=== PATIENT | female | born 1990 | race Hispanic/Latino ===

== ENCOUNTER → 2023-03-15 07:47 | Outpatient (CLI) | payer OTHER, SELFPAY ==
--- NOTE | 2023-03-15 | DI.US.S_ITS ---
PROCEDURE: US OB >= 14 WEEKS FETUS INDICATIONS: GROWTH DATES OUTSIDE/PRIOR DATING DATA: Last menstrual period (LMP): 07/14/2022. LMP-based estimated date of delivery (RINA): 04/20/2023. The calculations are made using the clinical RINA of 04/20/2023. TECHNIQUE: Real-time scanning was performed of the fetus, with image documentation and biometric measurements. Endovaginal scanning: Not performed COMPARISON: None. FINDINGS: General: A single living intrauterine gestation is present. Presentation: Vertex. Placenta: Placental position is anterior , without previa. Amniotic fluid index: 12.6 cm, normal range is 5-24 cm. Single deepest vertical pocket is 5.5 cm. heart rate: 157 beats per minute. Maternal cervical canal: 4.8 cm long. Normal lower limit is 2.5 cm. biometrics: Biparietal diameter: 8.7 cm, 34 weeks 6 days Head circumference: 32.5 cm, 36 weeks 6 days Abdominal circumference: 31.5 cm, 35 weeks 3 days Femur length: 6.1 cm, 31 weeks 5 days Clinically estimated gestational age: 34 weeks 6 days Composite gestational age from present scan: 34 weeks 5 days Estimated weight and percentile: 2458 g, 37th percentile IMPRESSION: Single living intrauterine at 34 weeks 6 days, RINA of 04/20/2023. Estimated weight 2458 g, 37th percentile. We strive to produce accurate, complete, and clear reports of imaging services. To assist us in improving patient care, this report was composed using standard report templates and voice recognition software. Therefore, it may contain abnormal punctuation, insertions and/or omissions. Occasional wrong-word or sound-alike substitutions may occur. Though we review the report and make efforts to correct it, we do recommend that the report be read carefully in proper context to recognize any text inaccuracies. Dictated by: Akbar Snyder M.D. on 03/15/2023 at 11:29 Approved by: Akbar Snyder M.D. on 03/15/2023 at 11:32
== END ==
PROVIDERS: Referring Provider Advanced Practice Midwife; Visit Provider Advanced Practice Midwife
DX: O09.813 Supervision of pregnancy resulting from assisted reproductive technology, third trimester (principal); Z3A.34 34 weeks gestation of pregnancy
CPT/HCPCS: 76811

== ENCOUNTER 2023-04-02 15:58 | Outpatient (CLI) | payer OTHER, SELFPAY | END 2023-04-02 17:00 | disposition home or self-care (01) | LOC: OB 04-06 12:08 | PROVIDERS: Referring Provider Nurse Practitioner Obstetrics & Gynecology; Visit Provider Nurse Practitioner Obstetrics & Gynecology | DX: O47.1 False labor at or after 37 completed weeks of gestation (principal); O09.813 Supervision of pregnancy resulting from assisted reproductive technology, third trimester; Z3A.37 37 weeks gestation of pregnancy | CPT/HCPCS: 59025; 76815; G0378; G0379 ==

== ENCOUNTER 2023-04-15 17:09 | Outpatient (CLI) | payer OTHER, SELFPAY ==
--- NOTE | 2023-04-15 19:56 | PM.PROC.1 ---
Procedures Date/Time Date of procedure: 04/15/23 Time of procedure: 18:00 General Procedure description: 32 YO @ 39 wks 2 days by IVF here for martinez balloon placement in anticipation of IOL scheduled tomorrow 04/16/23 for IVF. Baseline FHR: 130 bpm Moderate variability Accels present Decels absent Reactive NST Verified written consent for induction of labor. Procedure explained. Martinez balloon placed with speculum and sterile technique. Cervix cleansed with betadine solution on a scopette x3. Martinez catheter balloon inserted into os and inflated with 60mL normal saline. Tubing clamped. Patient tolerated the procedure well. FHR remained Cat I by continuous EFM. Anticipatory guidance given for cramping, vaginal bleeding and passage of cervical ripening balloon. Return to center at 0730am tomorrow morning for IOL.
== END 2023-04-15 19:01 | disposition home or self-care (01) ==
LOC: OB 04-18 15:05
PROVIDERS: PCP Internal Medicine; Referring Provider Nurse Practitioner Obstetrics & Gynecology; Visit Provider Nurse Practitioner Obstetrics & Gynecology
DX: O09.813 Supervision of pregnancy resulting from assisted reproductive technology, third trimester (principal); Z3A.39 39 weeks gestation of pregnancy
CPT/HCPCS: 59200; 59025; G0378; G0379

== ENCOUNTER 2023-04-16 07:37 | Inpatient (IN) | payer OTHER, SELFPAY ==
--- NOTE | 2023-04-16 08:02 | P.HPOB_ITS ---
OB HPI Date/Time Date of admission: 04/16/23 Date Patient Seen: 04/16/23 Time Patient Seen: 07:45 History of Present Condition Chief complaint: INDUCTION : 1 Para: 0 Estimated Date of Delivery: 04/20/23 Estimated Gestational Age (weeks): 39.3 Narrative: Arin Mcfarland is a 32 year old female at 39 weeks 3 days here for IOL for IVF . She has received regular care with CNMs, complicated by IVF and GBS positive. She is accompanied by her supportive Edwar and is hoping for an unmedicated delivery. Yesterday, 04/15/23, she presented to the hospital for an outpatient appointment, in which informed consent for IOL was obtained and a martinez balloon inserted and inflated to 60mL of normal saline, tolerated well. This morning she presents with the martinez balloon still in place, continuing to cramp since 11pm last night. She reports regular movement, noting a little bit less in the middle of the night when cramps got stronger. She has had bloody show and no leakage of fluid. Indications Indication for induction OB: other (IVF) History of Present care: good care, initiated at week # (12), number of visits (9) and po unds weight gain (36) Dating criteria: other (based on fresh embryo transfer date, confirmed with 5 week US) Ultrasounds: normal 1st trimester US and normal mid trimester US Preadmission Labs Blood type: A (+) positive -: Antibody screen: negative, GBS status: positive, HBsAG: negative, HIV: negative and RPR/VDLR: negative -: Chlamydia screen: not detected and Gonorrhea screen: not detected -: Rubella: immune and Varicella: immune HCT: 33 HCAB: negative PAP: Normal Cell-free DNA: Negative MsAFP: negative 1 hr GTT: 68 Evaluation Evaluation Baseline heart rate: 130 Variability: Moderate (11-25) monitor accelerations: Present Monitor Decelerations: Absent Contraction Frequency (minutes): 4 (2-5) Uterine Contraction Intensity: Moderate Status: Category l Comments: CE: martinez balloon in cervical os but unable to pull through with tension applied [facility] Medical History (Updated 04/16/23 @ 08:44 by Vesta Westfall CNM) 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 Social History marital status: household members: spouse housing: house do you feel safe at home: Yes Smoking Status: Never smoker alcohol intake: former substance use type: does not use Meds Home Medications and Allergies Home Medications Medication Instructions Recorded Confirmed Type No Known Home Medications 04/16/23 04/16/23 History Allergies Allergy/AdvReac Type Severity Reaction Status Date / Time No Known Drug Allergies Allergy Verified 04/16/23 08:22 Review of Systems Review of Systems ROS: Yes All systems reviewed with the patient and are negative except as other lewis documented OB Exam Vital signs Blood Pressure: 124/78 Pulse Rate: 102 Temperature: 98.6 F Resp Effort & Inspection: normal respiratory effort Auscultation: clear to auscultation bilaterally Cardio Rate: regular rate Rhythm: regular rhythm Presentation: vertex Assessment and Plan Assessment and Plan Assessment and Plan narrative: A: Term nullipara IVF IOL, cervical ripening on-going Membranes intact GBS prophylaxis indicated FHR Cat 1 P: Admit to center IA until change in plan of care Plan for CE and pitocin, if indicated, after martinez balloon comes out GBS prophylactic antibiotics with ROM or in active labor Reassess in 4 hours or sooner PRN
[2023-04-16 08:23] VITALS: BP 124/78; PULSE 102; TEMP 37
[2023-04-16 09:45] VITALS: BP 124/78
--- NOTE | 2023-04-16 11:43 | PM.OBPNLAB ---
Date/Time Date Patient Seen: 04/16/23 Time Patient Seen: 11:44 Pain Control Pain control: tolerating well Comments: Continued to contract every 3-5 minute with moderate intensity until recently contractions became shorter and less intense. Lots of FM. Has been seeing bloody show. No leaking of fluid. Supportive partner at bedside. VS: BP 114/77, HR 103bpm, T 36.8C Temporal Pelvic Exam Dilation (cm): 4 Effacement (%): 50 station: -3 Amniotic membrane status: Intact Comments: Zhang-5 Contractions Monitor mode: External Pitocin rate (mU/min): 0 Contraction frequency (min): 4 Contraction duration (min): 40 Contraction intensity: Moderate Status Heart Rate Baseline: 135 Comments: Reassuring by intermittent auscultation Assessment and Plan Assessment: induction ongoing (cervical ripening indicated) Plan: other Comments: GBS prophylaxis once active or SROM cervical ripening with Miso Q4 hours for up to 6 doses Labor support PRN Reassess in 8 hours/after 2 doses, or sooner, PRN
[2023-04-16] MEDS: miSOPROStoL 25 MCG TABLET 50 MCG SL ×2 (12:01→16:19)
[2023-04-16 12:23] LABS: Add Manual Diff / Slide Review NO; Basophils Absolute Auto 100 /uL (0-100); Basophils Percent Auto 0.5 % (0-2); Eosinophils Absolute Auto 0 /uL (0-450); Eosinophils Percent Auto 0.3 % (2-4); Hemoglobin 12.5 g/dL (12.0-16.0); Lymphocytes Absolute Auto 1500 /uL (1100-4500); Lymphocytes Percent Auto 8.5 % (25-40); Mean Corpuscular HGB Conc 33.7 % (30-36); Mean Corpuscular Hemoglobin 29.6 PG (26-34); Mean Corpuscular Volume 87.7 fL (80-100); Monocytes Absolute Auto 1200 /uL (0-900); Neutrophils Absolute Auto 14900 /uL (1500-7000); Neutrophils Percent Auto 83.7 % (50-75); Platelet Count 165 X10^3/uL (150-400); Red Blood Cell Count 4.22 X10^6/uL (4.0-5.2); Red Cell Distribution Width 13.3 % (11.6-14.8); White Blood Cell Count 17.8 X10^3/uL (4.5-11.0)
--- NOTE | 2023-04-16 19:41 | PM.OBPNLAB ---
Date/Time Date Patient Seen: 04/16/23 Time Patient Seen: 19:30 Pain Control Pain control: tolerating well Comments: Arin is sitting up in bed, uncomfortable with contractions for the last 30 minutes. Feels like she is coping well, but needing to breathe through them now, rates them a 4-6 out of 10. VS: BP - 124/74mmHg, HR - 100bpm, T - 36.9C Pelvic Exam Dilation (cm): 4.5 Effacement (%): 50 station: -3 Amniotic membrane status: Intact Comments: anterior, moderate Zhang score: 6 Contractions Monitor mode: External Contraction frequency (min): 2 (1-3) Contraction duration (min): 1 Contraction pattern: Regular Contraction intensity: Moderate Status status: Category l Heart Rate Baseline: 135 Monitor Accelerations: Present Monitor Decelerations: Absent Monitor Variability: Moderate Assessment and Plan Assessment: induction ongoing Plan: continuous present management Comments: A: Term nullipara IVF IOL, continued cervical indicated GBS prophylaxis indicated Membranes intact Coping well FHR Cat 1 P: Re-dose miso 5 hours after last dose if possible, goal of two more miso doses overnight if contraction patterns allow Antibiotics for GBS prophylaxis with ROM or active labor Encourage rest Plan to recheck in the morning, or sooner PRN active labor
[2023-04-16] MEDS: CALCIUM CARBONATE 500 MG TAB 1000 MG PO (23:21)
[2023-04-17] MEDS: AMPICILLIN 2,000 MG in SODIUM CHLORIDE 0.9% 100 ML 200 MG IV (00:05)
--- NOTE | 2023-04-17 00:55 | P.PCN_ITS ---
Regional Block Pre-procedure Procedure: Continuous Lumbar Epidural for L&D Attending OB provider: Vesta Westfall PMH/ROS narrative: term labor, no complications, IVF, no significant PMH. ASA Class: II Labs: Hct 37.0 % (36-46) 04/16/23 12:10 Plt Count 165 X10^3/uL (150-400) 04/16/23 12:10 Medications: Current Medications Generic Name Dose Route Start Last Admin Trade Name Freq PRN Reason Stop Dose Admin Calcium Carbonate 1,000 mg 04/16/23 07:55 04/16/23 23:21 Calcium Carbonate 500 Mg Tab PO 1,000 mg Q4HR PRN Administration Dyspepsia Carboprost Tromethamine 250 mcg 04/16/23 07:55 Carboprost 250 Mcg/Ml Ampul IM Q90M PRN Bleeding Diphenhydramine HCl 25 mg 04/17/23 00:53 Diphenhydramine 50 Mg/Ml Vial IV Q10M PRN Pruritis Fentanyl 100 mcg 04/16/23 07:55 Fentanyl 100 Mcg/2 Ml Inj IV Q1H PRN Pain, Severe (7-10) Oxytocin/Lactated Ringer's 30 unit in 500 mls @ 200 mls/hr 04/16/23 07:55 Oxytocin Premix IV CONT PRN Bleeding Protocol Tranexamic Acid 1,000 mg/ 100 mls @ 200 mls/hr 04/16/23 07:55 Sodium Chloride IV NOW PRN Bleeding Oxytocin/Lactated Ringer's 30 unit in 500 mls @ 2 mls/hr 04/16/23 08:00 Oxytocin Premix IV TITRATE SUN Protocol 2 MILLIUNIT/MIN Ampicillin Sodium 1,000 mg/ 100 mls @ 200 mls/hr 04/16/23 12:00 Sodium Chloride IV Q4H SUN Lactated Ringer's 1,000 mls @ 100 mls/hr 04/16/23 08:00 Lactated Ringers IV CONT SUN FENT 2MCG/ML BUPIV 0.1% EPI 200 mcg in 100 mls @ 6 mls/hr 04/17/23 01:00 Fentanyl/Bupiv/Ns 2mcg/Ml - 0.1% EPIDURAL CONT SUN Lidocaine HCl 20 ml 04/16/23 07:55 Lidocaine 1% 20 Ml INJ INTRA-OP PRN Post Delivery Methylergonovine Maleate 0.2 mg 04/16/23 07:55 Methylergonovine 0.2 Mg Tablet PO Q6HR PRN Heavy Bleeding Methylergonovine Maleate 0.2 mg 04/16/23 07:55 Methylergonovine 0.2 Mg/Ml Vial IM NOW PRN Bleeding Misoprostol 800 mcg 04/16/23 07:55 Misoprostol 200 Mcg Tablet NJ NOW PRN Bleeding Misoprostol 50 mcg 04/16/23 16:00 04/16/23 16:19 Misoprostol 25 Mcg Tablet SL 50 mcg Q4H SUN Administration Nalbuphine HCl 2.5 mg 04/17/23 00:53 Nalbuphine 20 Mg/Ml Ampul IV Q10M PRN Pruritis Naloxone HCl 0.2 mg 04/16/23 07:55 Naloxone 0.4 Mg/Ml Vial IV Q2MIN PRN Opiate Reversal Ondansetron HCl 4 mg 04/16/23 07:55 Ondansetron 4 Mg/2 Ml Inj IV Q4HR PRN Nausea And Vomiting Oxytocin 10 unit 04/16/23 07:55 Oxytocin 10 Unit/Ml Vial IM NOW PRN Bleeding Allergies: Allergies Allergy/AdvReac Type Severity Reaction Status Date / Time No Known Drug Allergies Allergy Verified 04/16/23 08:22 Procedure Insertion date: 04/17/23 Insertion time: : Prep/Local: betadine x3 and 1% lidocaine Interspace: L4-5 Patient position: sitting Needle: 18 gauge [employer] (CSE: 27g Pencan through [place], clear CSF 2.5mg MPF bupiv) Loss of resistance with: saline KENDALL at (cm): 5 Catheter placed at SKIN (cm): 10 Catheter in SPACE (cm): 5 Insertion: No CSF, No Blood, No Paresthesia with insertion, No Paresthesia with injection and No Test dose reaction Initial Medications TEST DOSE time: : TEST DOSE: 1.5% lidocaine with epinephrine 1:200k (mL): 3 BOLUS DOSE time: 01:32 BOLUS DOSE (mL): 5 BOLUS DOSE med: 0.25% bupivacaine Infusion INFUSION: 0.125% bupivacaine and with fentanyl 2 mcg/mL Initial rate (mL/hr): 8 Subsequent interventions: First placement L3-4, +heme with catheter placement. KENDALL 5cm, catheter 11cm to 8cm, still with blood upon aspiration. Pulled and procedure repeated one level below, described above. 0840: 5mL 0.25% bupiv bolus Post-procedure Anesthesia time START: 01:00 Anesthesia time END: 11:06 Post-procedure Anesthesia Assessment: Yes CV function: HR/BP stable, Yes Resp function: RR/sat/airway adequate, Yes Post-op hydration adequate, Yes Pain control adequate, Yes Nausea & vomiting absent, Yes Temperature > 36 C, Yes Mental status appropriate and No Anesthesia complications
[2023-04-17] MEDS: CALCIUM CARBONATE 500 MG TAB 1000 MG PO ×2 (03:59→10:12)
[2023-04-17] MEDS: AMPICILLIN 1,000 MG in SODIUM CHLORIDE 0.9% 100 ML 200 MG IV ×2 (04:00→08:06)
--- NOTE | 2023-04-17 07:43 | PM.OBPNLAB ---
Date/Time Date Patient Seen: 04/17/23 Time Patient Seen: 07:00 Pain Control Pain control: epidural Comments: Arin's contractions became stronger around 10pm after 2 doses of misoprostol (last does at 1615). SROM for moderate meconium, at 2350. Ampicillin for GBS prophylaxis was initiated after SROM. Epidural was requested at 0030, then placed with adequate relief. CE by RN after epidural placement was 6cm/75%/-1, soft, mid position. Arin has been able to get some rest and contractions have continued without augmentation. FHR has been Cat II for occasional late and variable decelerations with moderate variability and accelerations throughout the night. Pelvic Exam Dilation (cm): 9 Effacement (%): 100 station: -1 Amniotic membrane status: Leaking (moderate meconium) Contractions Monitor mode: External Pitocin rate (mU/min): 0 Contraction frequency (min): 2 Contraction duration (min): 1 Contraction pattern: Regular Contraction intensity: Moderate Status status: Category ll Heart Rate Baseline: 140 Monitor Accelerations: Present Monitor Decelerations: Late and Variable Monitor Variability: Moderate Assessment and Plan Assessment: active labor (adequate GBS prophylaxis) and other (meconium stained amniotic fluid) Plan: continuous present management Comments: Anticipate initiation of second stage soon. RT at for MSAF. Reassess in 2 hours or sooner, PRN.
[2023-04-17] MEDS: FENT 2MCG/ML BUPIV 0.1% EPI 200 MCG/100 ML PLAST..BAG 6 MCG EPIDURAL (08:15)
[2023-04-17] MEDS: OXYTOCIN PREMIX 30 UNIT/500 ML PLAST..BAG 200 UNIT IV (11:28)
--- NOTE | 2023-04-17 11:57 | PM.OBPRVD ---
Events: Labor Induction (IVF) and Meconium Stained Fluid Labor & Delivery Delivery date: 04/17/23 Intrapartal Events: None Cervical ripening method: per Gray bulb protocol (then 2 doses of misoprostol) Induction method: none Delivery monitor: external FHT and external uterine Route of delivery: L&D Laceration Description: Perineal - 2nd Degree and Vaginal - 2nd Degree Delivery repair: vicryl Quantitative Blood Loss: 500 Anesthesia Type: Epidural Narrative: Arin was found to be C/C/+1 and pushed with steady progress for an average second stage. FHR was primarily Cat 1. The head crowned over multiple contractions and RT was called to delivery for meconium stained amniotic fluid. With delivery of the head, a compound R hand was noted at posterior introitus and was manually reduced, and with the next push a vigorous girl was delivered in TAMIKA position, with no nuchal cord and easy delivery of the shoulders. Baby irais Flores was placed on Arin's abdomen where she was dried, stimulated and suction with a bulb syringe. Apgars 8/9. 30u Pitocin in 500mL LR was started for AMSTL, bleeding noted from laceration and from placental separation. Pitocin was increased to a bolus at this time. After cessation of pulsation, the cord was double clamped by SNM and cut by LUCIA Vann, cord blood sample collected. With gentle cord traction and single maternal push, an apparently intact placenta delivered spontaneously, along with membranes and a 3 vessel cord. The fundus was immediately firm, midline at U. Bleeding was minimal after delivery of the placenta. A second degree perineal laceration was noted on inspection and repaired with 3-0 vircyl in the usual fashion. A digital rectal exam confirmed no rectal involvement. Dr. Pastor was consulted to evaluate vaginal lacerations due to difficulty visualizing and evaluating marginal of laceration extending deeper into vaginal canal. Arin continued to have adequate anesthesia with epidural running. Dr. Pastor repaired bilateral sulcal tears, rapidly achieving hemostasis. EBL 500. TXA 1g x2 doses ordered. Arin and baby Sandra were stable, skin to skin and when I left the room. [place] Baby 1: Infant gender: Female Presentation: vertex Position: Left Occiput Anterior (compound R hand ) Placenta delivery description: Spontaneous Cord Vessel Description: 3 Vessels score (1 min): 8 score (5 min): 9 weight: 3.293 kg Plan for aftercare: Routine care
[2023-04-17] MEDS: TRANEXAMIC ACID 1,000 MG in SODIUM CHLORIDE 0.9% 100 ML 200 MG IV ×2 (12:44→14:00)
[2023-04-17] MEDS: KETOROLAC 30 MG/ML VIAL IV (12:45)
[2023-04-17] MEDS: LACTATED RINGERS 1,000 ML 100 ML IV (12:54)
[2023-04-17] MEDS: DERMOPLAST SPRAY 20% 60 ML 1 SPRAY TOP (15:37)
[2023-04-17] MEDS: ACETAMINOPHEN 325 MG TABLET 650 MG PO (15:37)
[2023-04-17] MEDS: LANOLIN OINT 7 GM 1 APPLIC TOP (15:37)
[2023-04-17] MEDS: IBUPROFEN 600 MG TABLET PO (18:43)
[2023-04-17] MEDS: OXYCODONE/ACETAMINOPHEN 5/325 TABLET 1 TAB PO (18:43)
[2023-04-17] MEDS: OXYCODONE IR 5 MG TABLET PO (23:26)
[2023-04-18] MEDS: KETOROLAC 30 MG/ML VIAL IV ×2 (00:39→06:12)
[2023-04-18] MEDS: ACETAMINOPHEN 325 MG TABLET 650 MG PO ×3 (03:07→18:22)
[2023-04-18] MEDS: OXYCODONE IR 5 MG TABLET PO ×3 (03:09→14:57)
[2023-04-18 08:44] LABS: Add Manual Diff / Slide Review NO; Basophils Absolute Auto 0 /uL (0-100); Basophils Percent Auto 0.2 % (0-2); Eosinophils Absolute Auto 0 /uL (0-450); Eosinophils Percent Auto 0.2 % (2-4); Hematocrit 27.7 % (36-46); Hemoglobin 9.4 g/dL (12.0-16.0); Lymphocytes Absolute Auto 1600 /uL (1100-4500); Lymphocytes Percent Auto 9.3 % (25-40); Mean Corpuscular HGB Conc 33.8 % (30-36); Mean Corpuscular Hemoglobin 29.5 PG (26-34); Mean Corpuscular Volume 87.3 fL (80-100); Monocytes Absolute Auto 1200 /uL (0-900); Monocytes Percent Auto 7.4 % (3-14); Neutrophils Absolute Auto 14100 /uL (1500-7000); Neutrophils Percent Auto 82.9 % (50-75); Platelet Count 128 X10^3/uL (150-400); Red Blood Cell Count 3.18 X10^6/uL (4.0-5.2); Red Cell Distribution Width 13.1 % (11.6-14.8)
[2023-04-18] MEDS: HYDROMORPHONE 1 MG INJ IV (09:10)
[2023-04-18] MEDS: DOCUSATE 100 MG CAPSULE PO (09:10)
--- NOTE | 2023-04-18 09:30 | PM.OBPN.1 ---
Subjective - OB Subjective Interval history: PPD1: Stable status post NSVB w/ complicated 2nd degree laceration. Arin is voiding and ambulating with assistance, tolerating a general diet. She had a lot of pain overnight, requiring PO narcotics. Pain is strongest in L groin, but is present bilaterally; they feel heavy and tender when she ambulates or lifts legs in bed. Vagina and perineum feel sore. Bleeding has been light, no clots. She is worried about , baby has a shallow latch that feels painful to Arin and she doesn't think the baby is getting much milk, and latch does not improve with nipple shield. Edwar is supportive at bedside. Exam Vital Signs (past 8 hours): BP: 112/74 mmHg, HR: 95 bpm, RR: 17/min, T: 97.7F Temporal, Sp02:99% External Female Exam: erythema and external swelling Other: Bruising and swelling of vaginal introitus and labia minora consistent with vaginal delivery 24 hours ago with 2nd degree tear. Laceration is well approximated. Labia majora with minimal to moderate edema, decreased from yesterday. One finger digital exam inside vagina shows decreased swelling compared to yesterday, no hematoma palpated. Extrem Right lower extremity: hip/thigh Details: tenderness and abnormal ROM Details: pain with active ROM during (ambulation) Left lower extremity: hip/thigh Details: normal to inspection, tenderness and abnormal ROM Details: pain with active ROM (ambulation) Objective Labs 04/18/23 08:40 Labs: Laboratory Results - last 24 hr 04/18/23 08:40 WBC 17.0 H RBC 3.18 L Hgb 9.4 L Hct 27.7 L MCV 87.3 MCH 29.5 MCHC 33.8 RDW 13.1 Plt Count 128 L Neut % (Auto) 82.9 H Lymph % (Auto) 9.3 L [place] % (Auto) 7.4 Eos % (Auto) 0.2 L Baso % (Auto) 0.2 Neut # (Auto) 64810 H Lymph # (Auto) 1600 [place] # (Auto) 1200 H Eos # (Auto) 0 Baso # (Auto) 0 Assessment & Plan Assessment and Plan (1) Del w/ 2 deg lac-unsp: Status: Acute Plan day: 1 plan OB: other (Plan to discharge home on day 2; work on pain management, , ambulation today ) Comments: Pump q2-3 hours while awake, schedule marketing consultant appointment tomorrow 04/19/23 Continue ibuprofen and acetaminophen q6, with PO oxy 5-10 as needed Encourage resting in supine or side-lying positions to facilitate drainage of labial edema Provided reassurance that hip and perineal discomfort should improve over the next few days Time Spent With Patient Time: Total time spent is greater than 50% in coordination of care (as documented) at patient's floor/unit and/or counseling patient: Time with patient: 15-24 minutes
[2023-04-18] MEDS: IBUPROFEN 600 MG TABLET PO ×2 (12:21→18:22)
[2023-04-19] MEDS: IBUPROFEN 600 MG TABLET PO ×3 (00:30→13:07)
[2023-04-19] MEDS: ACETAMINOPHEN 325 MG TABLET 650 MG PO ×3 (00:30→13:07)
[2023-04-19] MEDS: OXYCODONE IR 5 MG TABLET PO ×3 (00:30→10:55)
[2023-04-19] MEDS: DOCUSATE 100 MG CAPSULE PO (00:30)
--- NOTE | 2023-04-19 07:54 | P.DS_ITS ---
Discharge Providers Provider Date of admission: 04/16/23 07:37 Discharge Date: 04/19/23 Primary care physician: Pema Sheriff MD Consults: 04/18/23 11:48 Consult to Napper Grinder Routine Comment: Discharge provider: Vesta Westfall CNM Summary Hospital Course Date Patient Seen: 04/19/23 Time Patient Seen: 07:55 Diagnoses: O09.819, o70.1, [id number].[id number] Hospital Course: PPD#2: Arin is sitting in bed holding her baby. She is ambulating and voiding with the support of her , tolerating a normal diet and passing gas. Pain is adequately controlled with PO meds, including narcotics. Pain is worse with ambulation, much improved from yesterday. Bleeding has been light, without clots. continues to be her biggest concern; she tried pumping yesterday but that was too painful so has been hand expressing and feeding at the breast. Latch is improving but remains painful. Edwar is supportive and they both feel comfortable going home today Peripartum Data Delivery Method: Natural Vaginal Laceration Description: Perineal - 2nd Degree Episiotomy description: None complications: none [place] 1: Gender: Female Disposition of : home Discharge Diagnosis (1) Del w/ 2 deg lac-unsp: Status: Acute Problem Details: Well approximated, edema decreasing Status at Discharge Cognitive/behavioral status at discharge: at baseline, oriented Functional status at discharge: independent ambulation (with support of ) Overall status at discharge: patient is progressing back to baseline Time Spent with Patient Time attestation: Total time spent providing and/or coordinating discharge services: Objective Labs 04/18/23 08:40 Labs: Laboratory Results - last 24 hr 04/18/23 08:40 WBC 17.0 H RBC 3.18 L Hgb 9.4 L Hct 27.7 L MCV 87.3 MCH 29.5 MCHC 33.8 RDW 13.1 Plt Count 128 L Neut % (Auto) 82.9 H Lymph % (Auto) 9.3 L [place] % (Auto) 7.4 Eos % (Auto) 0.2 L Baso % (Auto) 0.2 Neut # (Auto) 27442 H Lymph # (Auto) 1600 [place] # (Auto) 1200 H Eos # (Auto) 0 Baso # (Auto) 0 Exam Vital Signs (past 8 hours): BP: 109/65 mmHg HR: 85 bpm RR: 18/min T: 97.5 Temportal Sp02: 96% Other: Fundus firm, midline, U-1 Lochia rubra, light, no clots Perineum well approximated, bruising, edema decreasing Discharge Plan Discharge Plan Patient Disposition: Home Provider Discharge Comment: after IBCLC consultation Discharge orders & Medications Prescriptions: New docusate sodium 100 mg Capsule 100 mg PO BID 14 Days Qty: 28 0RF ibuprofen 600 mg Tablet 600 mg PO Q6HR PRN (Reason: Pain, Mild (1-3)) 14 Days Qty: 60 0RF oxycodone 5 mg Tablet 5 mg PO Q4HR PRN (Reason: Pain, Moderate (4-6)) 7 Days Qty: 14 0RF Follow up/Referrals: Vesta Westfall CNM [Advanced Video Effects Editor] - 2 Weeks (2 weeks PHONE April 30 @ 4:45pm 6 weeks IN PERSON May 31 @ 11:15am ) Pema Sheriff MD [Primary Care Provider] - Diet/Activity/Treatments Diet: Diet as Tolerated and Regular Diet comment: High fiber, lots of fruits and veggies, increase hydration Activity: Rest! In and around bed for two weeks Skin/Wound/Dressing Care Skin care: Gentle Report to your healthcare provider any signs of infection, such as:: chills, fever, increased pain, unusual drainage and unusual redness Visit Report/Discharge Packet Instructions: DI for Depression Stand Alone Forms: Stroke Signs & Symptoms Discharge Data Primary Care Provider: Pema Sheriff
[2023-04-19 15:32] VITALS: BP 112/69; PULSE 76; RESP 16; TEMP 36.6
== END 2023-04-19 14:55 | disposition home or self-care (01) | DRG 807 ==
PROVIDERS: Admitting Provider Nurse Practitioner Obstetrics & Gynecology; PCP Internal Medicine; Referring Provider Nurse Practitioner Obstetrics & Gynecology; Visit Provider Nurse Practitioner Obstetrics & Gynecology
DX: O99.824 Streptococcus B carrier state complicating childbirth (principal); Z37.0 Single live birth; O70.1 Second degree perineal laceration during delivery; Z3A.39 39 weeks gestation of pregnancy; O76 Abnormality in fetal heart rate and rhythm complicating labor and delivery
CPT/HCPCS: 36415; 59050; 59200; 85025; 86850; 86900; 86901; G0379; J0290; J1170; J1885; J2590

== ENCOUNTER → 2023-04-21 15:03 | Outpatient (ROUT) | payer OTHER, SELFPAY ==
[2023-04-21 15:14] LABS: Hemoglobin 10.3 g/dL (12.0-16.0); Mean Corpuscular HGB Conc 33.1 % (30-36); Mean Corpuscular Hemoglobin 29.6 PG (26-34); Mean Corpuscular Volume 89.3 fL (80-100); Platelet Count 211 X10^3/uL (150-400); Red Blood Cell Count 3.47 X10^6/uL (4.0-5.2); Red Cell Distribution Width 13.2 % (11.6-14.8); White Blood Cell Count 12.3 X10^3/uL (4.5-11.0)
[2023-04-21 15:21] LABS: Alanine Aminotransferase 194 IU/L (<35); Albumin 3.8 g/dL (3.5-5.0); Albumin Globulin Ratio 1.3 (1.0-2.8); Alkaline Phosphatase 103 U/L (38-126); Aspartate Aminotransferase 137 IU/L (14-36); BUN Creatinine Ratio 30.9 (6-22); Bilirubin Total 0.2 mg/dL (0.2-1.3); Blood Urea Nitrogen 17 mg/dL (7-17); Calcium 9.3 mg/dL (8.4-10.2); Carbon Dioxide 26 mmol/L (22-32); Chloride 106 mmol/L (98-107); Estimated Glomerular Filt Rate > 60 mL/min (>60); Globulin 2.9 g/dL (1.7-4.1); Glucose 69 mg/dL (70-100); HEMOLYSIS < 15 (0-50); Potassium 4.5 mmol/L (3.4-5.1); Sodium 139 mmol/L (137-145); Total Protein 6.7 g/dL (6.3-8.2)
== END ==
PROVIDERS: PCP Internal Medicine; Visit Provider Advanced Practice Midwife
DX: O14.90 Unspecified pre-eclampsia, unspecified trimester (principal)
CPT/HCPCS: 80053; 85027

== ENCOUNTER 2023-04-21 19:34 | Inpatient (IN) | payer OTHER, SELFPAY ==
[2023-04-21] VITALS (9 sets, daily range): BP systolic 110–127; BP diastolic 74–79; PULSE 71–88; RESP 18–24; TEMP 36.5–37.2; O2SAT 96–100; BMI 31.2
--- NOTE | 2023-04-21 20:11 | P.HPOB_ITS ---
OB HPI Date/Time Date of admission: 04/21/23 Date Patient Seen: 04/21/23 Time Patient Seen: 20:00 History of Present Condition Chief complaint: high blood pressure : 1 Para: 1 Narrative: Arin is a 32 year old on day 4 following an IOL for IVF and NSVB with a second degree laceration and a complicated repair. She is being re-admitted for pre-eclampsia with severe features, following new on set hypertension at her visit today and elevated LFTs. She denies a headache, vision changes or RUQ pain. She endorses midline epigastric pain. After reviewing lab results, we consulted Dr. Geronimo, on-call OB, who recommended admission for magnesium sulfate x 24hrs. Arin is in good spirits, accompanied by her supportive Edwar and baby girl Sandra. 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 Social History marital status: household members: spouse housing: house do you feel safe at home: Yes Smoking Status: Never smoker alcohol intake: former substance use type: does not use Meds Home Medications and Allergies Home Medications Medication Instructions Recorded Confirmed Type docusate sodium 100 mg capsule 100 mg PO BID 14 days #28 caps 04/19/23 Rx ibuprofen 600 mg tablet 600 mg PO Q6HR PRN Pain, Mild 04/19/23 Rx (1-3) 14 days #60 tabs oxycodone 5 mg tablet 5 mg PO Q4HR PRN Pain, Moderate 04/19/23 Rx (4-6) 7 days #14 tabs Allergies Allergy/AdvReac Type Severity Reaction Status Date / Time No Known Drug Allergies Allergy Verified 04/16/23 08:22 Review of Systems Review of Systems ROS: Yes All systems reviewed with the patient and are negative except as otherwise documented OB Exam Vital signs Blood Pressure: 127/78 Pulse Rate: 76 Respiratory Rate: 18 Temperature: 98.2 F Resp Effort & Inspection: normal respiratory effort Auscultation: clear to auscultation bilaterally Cardio Rate: regular rate Rhythm: regular rhythm Extremities DTR's: Rt Patellar: 1+ (No clonus), Lt Patellar: 1+ (No clonus), Rt Brachial: 1+ and Lt Brachial: 1+ Objective Labs Labs: See [facility] labs drawn 04/21/23 at 1300 Assessment and Plan Assessment and Plan Assessment and Plan narrative: A: 32yo PPD#4 History of History of IVF Rh positive Pre-eclampsia with severe features P: Dr. Arriola to manage and place orders for magnesium sulfate and associated care, will round on patient in AM or sooner as needed CNM to complete H&P, completed baseline physical assessment with Arin and discussed expectations for length of stay and magnesium sulfate Ibuprofen, Zofran and Metamucil ordered Support triple feeding due to concern for jaundice
[2023-04-21] MEDS: LACTATED RINGERS 1,000 ML 50 ML IV (20:40)
[2023-04-21] MEDS: MAGNESIUM SULFATE 4 GM/100 ML PIGGYBACK IV (20:40)
[2023-04-21] MEDS: MAGNESIUM SULFATE 20 GM/500 ML IV.SOLN IV (21:14)
[2023-04-22] VITALS (18 sets, daily range): BP systolic 103–141; BP diastolic 70–95; PULSE 73–100; RESP 15–22; TEMP 36.3–36.9; O2SAT 98–100
[2023-04-22] MEDS: IBUPROFEN 400 MG TABLET 800 MG PO ×4 (00:05→22:24)
[2023-04-22] MEDS: MAGNESIUM SULFATE 20 GM/500 ML IV.SOLN IV (06:03)
[2023-04-22 07:19] LABS: Add Manual Diff / Slide Review NO; Basophils Absolute Auto 0 /uL (0-100); Basophils Percent Auto 0.3 % (0-2); Eosinophils Absolute Auto 200 /uL (0-450); Eosinophils Percent Auto 2.4 % (2-4); Hematocrit 28.7 % (36-46); Hemoglobin 9.7 g/dL (12.0-16.0); Lymphocytes Absolute Auto 1600 /uL (1100-4500); Lymphocytes Percent Auto 15.6 % (25-40); Mean Corpuscular HGB Conc 33.9 % (30-36); Mean Corpuscular Volume 88.5 fL (80-100); Monocytes Absolute Auto 700 /uL (0-900); Monocytes Percent Auto 6.6 % (3-14); Neutrophils Absolute Auto 7600 /uL (1500-7000); Neutrophils Percent Auto 75.1 % (50-75); Platelet Count 215 X10^3/uL (150-400); Red Blood Cell Count 3.24 X10^6/uL (4.0-5.2); Red Cell Distribution Width 12.9 % (11.6-14.8); White Blood Cell Count 10.1 X10^3/uL (4.5-11.0)
[2023-04-22 08:00] LABS: Alanine Aminotransferase 160 IU/L (<35); Albumin 3.3 g/dL (3.5-5.0); Albumin Globulin Ratio 1.2 (1.0-2.8); Alkaline Phosphatase 96 U/L (38-126); Aspartate Aminotransferase 89 IU/L (14-36); BUN Creatinine Ratio 32.7 (6-22); Blood Urea Nitrogen 17 mg/dL (7-17); Calcium 7.6 mg/dL (8.4-10.2); Carbon Dioxide 23 mmol/L (22-32); Chloride 105 mmol/L (98-107); Estimated Glomerular Filt Rate > 60 mL/min (>60); Globulin 2.7 g/dL (1.7-4.1); Glucose 83 mg/dL (70-100); HEMOLYSIS < 15 (0-50); Potassium 4.2 mmol/L (3.4-5.1); Sodium 135 mmol/L (137-145)
[2023-04-22 08:11] LABS: Bilirubin Total < 0.1 mg/dL (0.2-1.3)
--- NOTE | 2023-04-22 08:34 | P.PN_ITS ---
Subjective Subjective Date Patient Seen: 04/22/23 Time Patient Seen: 07:45 Interval history: 32-year-old [id number] day 5., now on hospital day number 1 after readmission for preeclampsia with severe features. She reports feeling well this morning, with a slight headache. She denies any vision changes, right upper quadrant pain, chest pain, or shortness of breath. Exam Vital Signs (past 8 hours): - 04/22/23 01:00 04/22/23 02:00 04/22/23 03:00 Temperature 98.1 F 97.8 F 98 F Pulse Rate 82 78 76 Respiratory Rate 20 18 22 Blood Pressure 113/79 114/86 118/84 Pulse Oximetry 99 98 98 04/22/23 04:00 04/22/23 06:00 Temperature 97.8 F 97.8 F Pulse Rate 81 80 Respiratory Rate 20 22 Blood Pressure 125/85 116/85 Pulse Oximetry 98 98 Const General: cooperative, healthy appearing and comfortable Resp Effort & Inspection: normal respiratory effort and able to speak in complete sentences Skin General: no rashes or lesions noted Neuro General: patient alert and patient awake Cognition: normal cognition Speech: speech normal DTR's: Rt Patellar: 2+ and Lt Patellar: 2+ Extrem General: normal to inspection and edema (mild, 1+) Psych Mental Status: mental status grossly normal Mood: congruent mood Affect: normal affect Objective Labs 04/22/23 06:28 04/22/23 06:28 Labs: Laboratory Results - last 24 hr 04/22/23 06:28 WBC 10.1 RBC 3.24 L Hgb 9.7 L Hct 28.7 L MCV 88.5 MCH 30.0 MCHC 33.9 RDW 12.9 Plt Count 215 Neut % (Auto) 75.1 H Lymph % (Auto) 15.6 L [place] % (Auto) 6.6 Eos % (Auto) 2.4 Baso % (Auto) 0.3 Neut # (Auto) 7600 H Lymph # (Auto) 1600 [place] # (Auto) 700 Eos # (Auto) 200 Baso # (Auto) 0 Sodium 135 L Potassium 4.2 Chloride 105 Carbon Dioxide 23 BUN 17 Creatinine 0.52 Estimated GFR > 60 BUN/Creatinine Ratio 32.7 H Glucose 83 Calcium 7.6 L Total Bilirubin < 0.1 L AST 89 H ALT 160 H Alkaline Phosphatase 96 Total Protein 6.0 L Albumin 3.3 L Globulin 2.7 Albumin/Globulin Ratio 1.2 [facility] Medical History 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 Her liver enzymes this morning appear to be down trending. -continue magnesium infusion for 24 hours total -continue close monitoring while on magnesium -ibuprofen or Tylenol for headache as needed -if patient continues to do well, anticipate discharge tomorrow morning Time Spent With Patient Time with patient: less than 30 minutes Quality VTE Deep Vein Thrombosis/Pulmonary Embolism Present on Admission: No
[2023-04-22] MEDS: ACETAMINOPHEN 325 MG TABLET 650 MG PO ×3 (09:38→22:24)
[2023-04-22 15:26] LABS: Add Manual Diff / Slide Review NO; Basophils Absolute Auto 0 /uL (0-100); Basophils Percent Auto 0.2 % (0-2); Eosinophils Absolute Auto 200 /uL (0-450); Eosinophils Percent Auto 1.8 % (2-4); Hematocrit 29.5 % (36-46); Lymphocytes Absolute Auto 1800 /uL (1100-4500); Mean Corpuscular HGB Conc 33.8 % (30-36); Mean Corpuscular Hemoglobin 29.9 PG (26-34); Mean Corpuscular Volume 88.5 fL (80-100); Monocytes Absolute Auto 600 /uL (0-900); Monocytes Percent Auto 5.9 % (3-14); Neutrophils Absolute Auto 7900 /uL (1500-7000); Neutrophils Percent Auto 75.1 % (50-75); Platelet Count 266 X10^3/uL (150-400); Red Blood Cell Count 3.33 X10^6/uL (4.0-5.2); White Blood Cell Count 10.5 X10^3/uL (4.5-11.0)
[2023-04-22 15:40] LABS: Alanine Aminotransferase 151 IU/L (<35); Albumin 3.5 g/dL (3.5-5.0); Albumin Globulin Ratio 1.1 (1.0-2.8); Alkaline Phosphatase 104 U/L (38-126); Aspartate Aminotransferase 76 IU/L (14-36); BUN Creatinine Ratio 24.6 (6-22); Blood Urea Nitrogen 15 mg/dL (7-17); Calcium 6.8 mg/dL (8.4-10.2); Carbon Dioxide 25 mmol/L (22-32); Chloride 104 mmol/L (98-107); Estimated Glomerular Filt Rate > 60 mL/min (>60); Globulin 3.1 g/dL (1.7-4.1); Glucose 91 mg/dL (70-100); HEMOLYSIS < 15 (0-50); Potassium 4.1 mmol/L (3.4-5.1); Sodium 137 mmol/L (137-145); Total Protein 6.6 g/dL (6.3-8.2)
[2023-04-22 16:19] LABS: Bilirubin Total < 0.1 mg/dL (0.2-1.3)
--- NOTE | 2023-04-22 21:16 | PC.NURSE ---
Pt in good spirits at this time. infant when RN entered room. Pt understands the need for frequent assessments, and is cooperative. Pitting edema is isolated to pedal and lower half tibial. Pt expresses no significant pain when ambulating but states her feet feel like they're going to pop. Pt expresses no headache, visual changes/alterations. Bilat DTR at knees are +3 brisk. L side more brisk than R, but not abnormal as of yet. This is a change from last night's shift. Provider informed of BP. Discussed starting nifedipine.
[2023-04-22] MEDS: NIFEdipine 30 MG TAB ER PO (22:23)
--- NOTE | 2023-04-22 22:43 | PC.NURSE ---
L patellar reflex more brisk than R, but not abnormal at this time.
--- NOTE | 2023-04-22 22:49 | PC.NURSE ---
Pt dangling on side of bed at this time. Just up to bathroom. No headache, visual changes, dizziness, nausea at this time. DTRs still brisk, L patellar moreso than R, but unchanged from previous assessment. Pitting edema noted, up to mid-tibial, unchanged from last assessment. Nifedipine explained and given. Pt requests shower at this time. Glove to protect IV site placed, towels provided. Pt showed where call cord is in bathroom if RN is needed during shower.
[2023-04-23] VITALS: BP 125/80; PULSE 77; RESP 17; TEMP 37.1; O2SAT 98
--- NOTE | 2023-04-23 00:27 | PC.NURSE ---
Pt sitting up, at time of RN entry. Lung sounds clear to auscultation. Edema is still +3 pitting, rebound at 18 seconds at this time. R pedal appears more edemetous than L pedal. Tibial edema seems to be pitting less than previous assessment. DTR still brisk bilat.
--- NOTE | 2023-04-23 02:05 | PC.NURSE ---
RN entered room to assess pt. Pt finally asleep for the first time. RN observed chest rise and fall. Will assess at a later time.
[2023-04-23 02:56] VITALS: BP 130/88; PULSE 81; RESP 17; TEMP 36.8; O2SAT 99
--- NOTE | 2023-04-23 02:58 | PC.NURSE ---
RN at bedside assessing pt. Pitting in feet rebounding at 22 seconds, although size of feet do not appear to have changed. Pitting into tibial space less that prior in shift, rebounding in 8 seconds. Patellar DTRs brisk. Pt does not feel reflexes are more than previously assessed. No headache/blurry vision/visual changes/ change in level of consciousness noted. Lung sounds clear to auscultation.
[2023-04-23 05:00] VITALS: BP 124/84; PULSE 81; RESP 17; TEMP 36.8; O2SAT 99
[2023-04-23] MEDS: ACETAMINOPHEN 325 MG TABLET 650 MG PO (05:11)
[2023-04-23] MEDS: IBUPROFEN 400 MG TABLET 800 MG PO (06:17)
--- NOTE | 2023-04-23 06:18 | PC.NURSE ---
Pt reflexes are very brisk, and seems to have changed since beginning of shift. Pitting edema in feet, R side rebounding at 40 seconds, L side rebounding at 1 minute. Tibial edema rebounding at 4-5 seconds bilat. Overall size of feet appear unchanged. Lung sounds clear to auscultation. Denies headache, nausea, change/disturbances in vision. Pt states that overall, she feels no different.
[2023-04-23 06:45] LABS: Add Manual Diff / Slide Review NO; Basophils Absolute Auto 0 /uL (0-100); Basophils Percent Auto 0.2 % (0-2); Eosinophils Absolute Auto 100 /uL (0-450); Eosinophils Percent Auto 1.4 % (2-4); Hemoglobin 10.7 g/dL (12.0-16.0); Lymphocytes Absolute Auto 1500 /uL (1100-4500); Lymphocytes Percent Auto 14.1 % (25-40); Mean Corpuscular HGB Conc 33.6 % (30-36); Mean Corpuscular Hemoglobin 29.7 PG (26-34); Mean Corpuscular Volume 88.4 fL (80-100); Monocytes Absolute Auto 700 /uL (0-900); Monocytes Percent Auto 6.1 % (3-14); Neutrophils Absolute Auto 8300 /uL (1500-7000); Neutrophils Percent Auto 78.2 % (50-75); Platelet Count 278 X10^3/uL (150-400); Red Blood Cell Count 3.62 X10^6/uL (4.0-5.2); Red Cell Distribution Width 13.2 % (11.6-14.8); White Blood Cell Count 10.6 X10^3/uL (4.5-11.0)
[2023-04-23 06:56] LABS: Alanine Aminotransferase 142 IU/L (<35); Albumin 3.7 g/dL (3.5-5.0); Albumin Globulin Ratio 1.2 (1.0-2.8); Alkaline Phosphatase 91 U/L (38-126); Aspartate Aminotransferase 58 IU/L (14-36); BUN Creatinine Ratio 28.6 (6-22); Bilirubin Total 0.1 mg/dL (0.2-1.3); Blood Urea Nitrogen 16 mg/dL (7-17); Calcium 8.6 mg/dL (8.4-10.2); Carbon Dioxide 25 mmol/L (22-32); Chloride 107 mmol/L (98-107); Estimated Glomerular Filt Rate > 60 mL/min (>60); Globulin 3.2 g/dL (1.7-4.1); Glucose 77 mg/dL (70-100); HEMOLYSIS < 15 (0-50); Potassium 4.2 mmol/L (3.4-5.1); Sodium 138 mmol/L (137-145); Total Protein 6.9 g/dL (6.3-8.2)
[2023-04-23 08:02] VITALS: BP 130/89; PULSE 74; RESP 12; TEMP 36.6
--- NOTE | 2023-04-23 08:29 | PM.DS.1 ---
History of Present Illness History of Present Illness Date Patient Seen: 04/23/23 Time Patient Seen: 08:29 Chief complaint: high blood pressure Discharge Providers Provider Date of admission: 04/21/23 19:34 Discharge Date: 04/23/23 Primary care physician: Pema Sheriff MD Discharge provider: Berenice Arriola DO Summary Hospital Course Discharge Diagnosis: pre-eclampsia with severe features Hospital Course: 32-year-old day number 6, hospital day 2 readmitted for preeclampsia with severe features in the period. She received 19 hours of magnesium infusion (stopped early by on-call provider oRsie). She was started on p.o. nifedipine daily. During her hospital admission, her LFTs downtrended. She had an intermittent headache that was relieved with Tylenol. She denied visual changes, right upper quadrant pain, chest pain, shortness of breath. Thus on hospital day 2, she was deemed appropriate for discharge to home. Status at Discharge Cognitive/behavioral status at discharge: oriented Functional status at discharge: independent ambulation Overall status at discharge: patient is back to baseline Time Spent with Patient Time spent: Greater than 30 minutes Exam Vital Signs (past 8 hours): - 04/23/23 02:56 04/23/23 05:00 04/23/23 08:02 Temperature 98.2 F 98.2 F 97.8 F Pulse Rate 81 81 74 Respiratory Rate 17 17 12 Blood Pressure 130/88 124/84 130/89 Pulse Oximetry 99 99 Const General: cooperative, healthy appearing and comfortable Resp Effort & Inspection: normal respiratory effort and able to speak in complete sentences GI Inspection: normal to inspection Skin General: no rashes or lesions noted Extrem General: normal to inspection, no pedal edema and no calf tenderness Psych Mood: congruent mood Affect: normal affect Objective Labs 04/23/23 06:09 04/23/23 06:09 Labs: Laboratory Results - last 24 hr 04/22/23 04/23/23 15:18 06:09 WBC 10.5 10.6 RBC 3.33 L 3.62 L Hgb 10.0 L 10.7 L Hct 29.5 L 32.0 L MCV 88.5 88.4 MCH 29.9 29.7 MCHC 33.8 33.6 RDW 13.0 13.2 Plt Count 266 278 Neut % (Auto) 75.1 H 78.2 H Lymph % (Auto) 17.0 L 14.1 L [place] % (Auto) 5.9 6.1 Eos % (Auto) 1.8 L 1.4 L Baso % (Auto) 0.2 0.2 Neut # (Auto) 7900 H 8300 H Lymph # (Auto) 1800 1500 [place] # (Auto) 600 700 Eos # (Auto) 200 100 Baso # (Auto) 0 0 Sodium 137 138 Potassium 4.1 4.2 Chloride 104 107 Carbon Dioxide 25 25 BUN 15 16 Creatinine 0.61 0.56 Estimated GFR > 60 > 60 BUN/Creatinine Ratio 24.6 H 28.6 H Glucose 91 77 Calcium 6.8 L 8.6 Magnesium 6.0 H* Total Bilirubin < 0.1 L 0.1 L AST 76 H 58 H ALT 151 H 142 H Alkaline Phosphatase 104 91 Total Protein 6.6 6.9 Albumin 3.5 3.7 Globulin 3.1 3.2 Albumin/Globulin Ratio 1.1 1.2 PFSH Medical History 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 Follow-up in your care provider's clinic next week for blood pressure check. Discharge orders & Medications Prescriptions: New nifedipine 30 mg Tablet Extended Release 24hr 30 mg PO DAILY Qty: 30 1RF Continued docusate sodium 100 mg Capsule 100 mg PO BID 14 Days Qty: 28 0RF ibuprofen 600 mg Tablet 600 mg PO Q6HR PRN (Reason: Pain, Mild (1-3)) 14 Days Qty: 60 0RF oxycodone 5 mg Tablet 5 mg PO Q4HR PRN (Reason: Pain, Moderate (4-6)) 7 Days Qty: 14 0RF Follow up/Referrals: Pema Sheriff MD [Primary Care Provider] - Diet/Activity/Treatments Diet: Diet as Tolerated and Regular Activity: Avoid placing anything in the vagina for 6 weeks after . Skin/Wound/Dressing Care Report to your healthcare provider any signs of infection, such as:: chills, fever, increased pain and unusual drainage Visit Report/Discharge Packet Instructions: DI for Pre-eclampsia Stand Alone Forms: Patient Portal/API, Stroke Signs & Symptoms Discharge Data Primary Care Provider: Pema Sheriff Attending Provider: Berenice Arriola Admit Date/Time: 04/21/23 19:34 Quality VTE Deep Vein Thrombosis/Pulmonary Embolism Present on Admission: No
[2023-04-23 10:02] VITALS: BP 130/89; PULSE 74; RESP 12; TEMP 36.6
== END 2023-04-23 10:03 | disposition home or self-care (01) | DRG 776 ==
PROVIDERS: Obstetrics & Gynecology; Admitting Provider Student in an Organized Health Care Education/Training Program; PCP Internal Medicine; Referring Provider Student in an Organized Health Care Education/Training Program; Visit Provider Student in an Organized Health Care Education/Training Program
DX: O14.25 HELLP syndrome, complicating the puerperium (principal); O14.90 Unspecified pre-eclampsia, unspecified trimester
CPT/HCPCS: 36415; 80053; 83735; 85025; 85027; G0378; G0379; J3475